=== PATIENT | female | born 1945 ===

== ENCOUNTER 2019-02-14 06:03 | Day surgery (SDC) | payer OTHER ==
[~2019-02-14 06:03] MED LIST: FOSAMAX70 MG PO; LIPITO PO; LOTREL 5-20 MG1 CAP PO
[2019-02-14] MEDS ORDERED: ALEVE220 M1 PO (11:20)
[2019-02-14] MEDS ORDERED: CIPRO500 MG PO (11:20)
[2019-02-14] MEDS ORDERED: PERCOCET 5-3251 EACH PO (11:20)
== END 2019-02-14 14:10 | disposition home or self-care (01) ==
LOC: CIR.AMB 06:03 → ADM 07:30 → CIR.AMB 07:30
DX: S86.012A Strain of left Achilles tendon, initial encounter (principal)